=== PATIENT | male | born 2005 | race Two or more races ===

== ENCOUNTER 2024-04-12 22:45 | Emergency (ER) | payer OTHER ==
[~2024-04-12] VITALS: Ht 170.2 cm; Wt 55.8 kg
[~2024-04-12 22:45] MED LIST: NO TOMA MEDICAMENTO
[2024-04-12] MEDS ORDERED: SERTRALINE HCL50 MG PO (23:26)
[2024-04-12] MEDS ORDERED: HYDROXYZIN10 MG/5 ML PO (23:27)
[2024-04-13] MEDS ORDERED: CEFTRIAXONE SODIUM 1,000 MG VIAL IM STA (01:01)
[2024-04-13] MEDS ORDERED: LIDOCAINE HCL 4% Topic SOLUTION TOP STA (01:02)
== END 2024-04-13 01:39 | disposition home or self-care (01) ==
LOC: ER 22:47 → EMR PED 23:02 → ER 23:02 → EMR PED 04-13 01:39
DX: J06.9 Acute upper respiratory infection, unspecified (principal); Z91.012 Allergy to eggs; Z91.018 Allergy to other foods